=== PATIENT | female | born 1970 | race Caucasian/White ===

== ENCOUNTER 2016-07-16 05:56 | Emergency (ER) | payer OTHER ==
[~2016-07-16 05:56] MED LIST: CELEXA20 PO; COSAMIN DS1 TAB PO; IBU400 PO; PRAVAC PO; ZANAFLEX2 MG PO
== END 2016-07-16 06:00 | disposition home or self-care (01) ==
LOC: ER 05:56
DX: I83.811 Varicose veins of right lower extremity with pain (principal); E66.01 Morbid (severe) obesity due to excess calories; F41.9 Anxiety disorder, unspecified; F17.200 Nicotine dependence, unspecified, uncomplicated; Z79.899 Other long term (current) drug therapy
CPT/HCPCS: 99283